=== PATIENT | female | born 1965 | race Caucasian/White ===

== ENCOUNTER 2017-04-09 12:22 | Emergency (ER) | payer OTHER ==
[~2017-04-09] VITALS: Ht 162.6 cm; Wt 67.0 kg
[2017-04-09] MEDS ORDERED: ELIMITE 5% CREA60 GM TP (13:01)
[2017-04-09 13:32] VITALS: BP 110/72
== END 2017-04-09 13:33 | disposition home or self-care (01) ==
LOC: EME 12:22
DX: B86 Scabies (principal)